=== PATIENT | female | born 2000 | race Hispanic/Latino ===

== ENCOUNTER 2020-10-13 19:38 | Emergency (ER) | payer OTHER ==
[~2020-10-13] VITALS: Ht 160 cm; Wt 55.6 kg
[2020-10-13] MEDS ORDERED: MINO50CA PO (19:45)
--- NOTE | 2020-10-14 00:46 | REPVR ---
PROCEDURE INFORMATION: Exam: US Pelvis Limited, Transabdominal, Soft tissue Exam date and time: 10/13/2020 12:15 AM Age: 19 years old Clinical indication: Pelvic pain; Prior surgery; Surgery date: 6+ months; Surgery type: Hernia repair 8 yrs ago; Additional info: Right groin pain ? hernia TECHNIQUE: Imaging protocol: Real-time transabdominal pelvic ultrasound with image documentation. Limited exam. Exam focused on the soft tissue. COMPARISON: No relevant prior studies available. FINDINGS: Soft tissues: There is a right inguinal hernia. No bowel is noted in the hernia sac. Lymph nodes: There are right inguinal lymph nodes, the largest measuring 1.9 cm x 0.5 cm x 0.9 cm, with preservation of the fatty hilum of the lymph nodes. IMPRESSION: Right inguinal hernia. Electronically signed by: Sukumar Manriquez On 10/14/2020 00:45:33 AM
[2020-10-14 01:28] VITALS: BP 118/65
== END 2020-10-14 01:29 | disposition home or self-care (01) ==
LOC: M ED 19:38
DX: K40.90 Unilateral inguinal hernia, without obstruction or gangrene, not specified as recurrent (principal); Z88.0 Allergy status to penicillin

== ENCOUNTER → 2020-12-24 | Outpatient (CLI) | payer OTHER ==
[~2020-12-24] MED LIST: MINO50CA PO
== END ==
LOC: M WHC 13:43
PROVIDERS: ATTEND Physician Assistant
DX: N63.10 Unspecified lump in the right breast, unspecified quadrant (principal)

== ENCOUNTER → 2021-01-20 | Outpatient (CLI) | payer OTHER ==
--- NOTE | 2021-01-21 15:57 | REP ---
INDICATION: RIGHT BREAST MASS, CAT 3 RECCOMEND MAMMO F/U. The patient head a targeted right breast ultrasound 9 o'clock position December 24, 2020 for a palpable abnormality. Unilateral diet a nonstick right breast mammography was recommended. At sonography showed a 2.0 x 11.8 x 0.7 cm hypoechoic area. In the meantime, the patient today reports 2 grape size tender lumps, 1 the area at 9 o'clock and the other in new area in the 5 o'clock position. She states that the lump in the 9 o'clock area seems smaller than before. COMPARISON: Comparison sonography December 24, 2020 right breast. TECHNIQUE: Two skin markers are affixed to the skin by the patient at the site of the 2 palpable areas. Cc and MLO views of the right breast are obtained. 3D tomography is carried out. At my request, the patient underwent repeat sonography at 9 o'clock and targeted sonography of the new palpable abnormality in the 5 o'clock position. The ultrasound was accomplished the day after the mammogram. This mammogram was interpreted with the aid of an FDA-approved computer-aided detection system. FINDINGS: The unilateral right breast mammography demonstrates extremely dense right breast parenchyma consistent with the patient's young age. No dominant density is visible mammographically. No spiculation, worrisome skin change, microcalcification, or architectural distortion is appreciated. 3D tomography images show no additional abnormality. The [place] volumetric breast density pattern is D. Targeted ultrasound: Targeted right breast sonography is performed. Heterogeneous fibroglandular background echotexture is seen. In the 9 o'clock position the previously noted hypo a Co ictal area of breast tissue is seen measuring 1.7 x 0.8 x 1.6 cm. Similar in appearance, slightly smaller in size. In the 5 o'clock position, sonography shows normal breast parenchyma. No cyst mass or other suspicious finding.. IMPRESSION: BIRADS/ACR category 3 probably benign right breast mammographic and sonographic findings. This patient's Tyrer-Cuzick lifetime breast cancer risk assessment score is 17.1%. RECOMMENDATION: Repeat targeted right breast sonography 9 o'clock area 6 months. The patient letter being requested is M2 dense. <Electronically signed by Nicholas Stallings > 01/21/21 [id number]
== END ==
LOC: M WHC 13:59
PROVIDERS: ATTEND Physician Assistant
DX: N63.11 Unspecified lump in the right breast, upper outer quadrant (principal)
CPT/HCPCS: 76642; 77065; G0279